=== PATIENT | female | born 1970 | race Caucasian/White ===

== ENCOUNTER 2024-09-24 15:24 | Emergency (ER) | payer BC ==
[~2024-09-24] VITALS: Ht 175.3 cm; Wt 117.9 kg
[~2024-09-24 15:24] MED LIST: ASPIRIN325 MG PO; GINGER250 MG PO; VITAMIN C500 M5
[2024-09-24] MEDS ORDERED: ASPIRIN 81 MG CHEW PO ONE (15:30)
[2024-09-24 16:18] LABS: BASOPHILS 0.8 % (0-2); EOSINOPHILS 2.7 % (0-6); HEMATOCRIT 41.2 % (35.0-50.0); HEMOGLOBIN 13.9 g/dL (12.0-18.0); LYMPHOCYTES 35.6 % (24-44); MCH 31.1 (27-36); MCHC 33.6 g/dl (30-36); MCV 92.6 fl (81-99); MONOCYTES 8.7 % (0-12); NEUTROPHILS 52.2 % (39-80); PLATELET COUNT 251 K/uL (140-440); RBC 4.45 M/ul (4.3-5.7); RDW 13.8 (10.5-15.0)
[2024-09-24 17:08] LABS: ALBUMIN 3.5 g/dL (3.4-5.0); ALBUMIN/GLOBULIN RATIO 0.97 (1.1-2.4); ANION GAP 11.9 (7-21); BILIRUBIN, TOTAL 0.3 ng/dL (0.2-1.0); BUN/CREATININE RATIO 21.21 (6.0-28.6); CALCIUM 8.8 mg/dL (8.5-10.1); CREATININE, SERUM 0.99 mg/dL (0.55-1.02); POTASSIUM 3.9 mmol/L (3.5-5.1); PROTEIN, TOTAL 7.1 g/dL (6.4-8.2)
[2024-09-24] MEDS ORDERED: LIDOCAINE & ANTACID 35 ML BTL PO ONE (17:30)
[2024-09-24 18:15] VITALS: BP 127/72
--- NOTE | 2024-09-24 21:52 | EKG ---
[facility] [address] [facility] [place], [place] [address] Signed Normal sinus rhythm Cannot rule out Anterior infarct , age undetermined Abnormal ECG No previous ECGs available Confirmed by Mary Lynn MD () on 09/24/2024 9:52:46 PM Electronically Signed By: MARY LYNN MD [id number] PATIENT NAME: KURT BRUNO Electrocardiogram DATE OF : 70 PHYSICIAN: MARY LYNN MD REPORT #: [id number] REPORT IS CONFIDENTIAL AND NOT TO BE RELEASED WITHOUT AUTHORIZATION
== END 2024-09-24 18:16 | disposition home or self-care (01) ==
LOC: ED 15:24
PROVIDERS: Emergency Medicine
DX: R07.89 Other chest pain (principal); R00.2 Palpitations; M41.9 Scoliosis, unspecified; Z88.5 Allergy status to narcotic agent; Z79.899 Other long term (current) drug therapy
CPT/HCPCS: 36415; 71045; 80053; 83735; 84443; 84484; 85025; 93005; 93010; 99285-25; A9270